=== PATIENT | male | born 1950 | race African-American/Black ===

== ENCOUNTER → 2016-10-13 | Outpatient (CLI) | payer MEDICARE, BC ==
[~2016-10-13] VITALS: Ht 190.5 cm; Wt 97.5 kg
[~2016-10-13] MED LIST: HYDR25TA PO; MULT-71 PO
[2016-10-13 13:18] VITALS: BP 113/68
== END | disposition home or self-care (01) ==
LOC: SRCNTR 12:57
PROVIDERS: ATTEND Hospitalist
DX: I10 Essential (primary) hypertension (principal); G47.00 Insomnia, unspecified; H66.91 Otitis media, unspecified, right ear
CPT/HCPCS: G0463

== ENCOUNTER → 2016-12-19 | Outpatient (CLI) | payer MEDICARE, BC ==
[~2016-12-19] VITALS: Ht 182.9 cm; Wt 97.0 kg
[~2016-12-19] MED LIST changes: +HEPATITIS A VACCINE, INACTI [ADULT] 1,440 UNITS/ML VIAL IM ONE; -MULT-71 PO; +MULT1TAB70 PO; +PREG75 PO; +TRIA1TAB93 PO; +ZOLP10TA7 PO
[2016-12-19 14:02] VITALS: BP 116/78
== END | disposition home or self-care (01) ==
LOC: SRCNTR 11:21
PROVIDERS: ATTEND Hospitalist
DX: I10 Essential (primary) hypertension (principal); G47.00 Insomnia, unspecified; G62.9 Polyneuropathy, unspecified
CPT/HCPCS: 90471; 90632; G0463

== ENCOUNTER → 2017-05-21 | Outpatient (CLI) | payer MEDICARE, BC ==
[~2017-05-21] MED LIST changes: -HYDR25TA PO
[2017-05-21 10:29] VITALS: BP 124/82
== END | disposition home or self-care (01) ==
LOC: SRCNTR 10:20
PROVIDERS: ATTEND Hospitalist
DX: I10 Essential (primary) hypertension (principal); G47.00 Insomnia, unspecified; G62.9 Polyneuropathy, unspecified
CPT/HCPCS: 90632; 96372; G0463